=== PATIENT | female | born 1965 | race African-American/Black ===

== ENCOUNTER 2020-04-21 17:58 | Inpatient (IN) | payer MEDICAID, OTHER ==
[~2020-04-21] VITALS: Ht 162.6 cm; Wt 61.7 kg
[2020-04-21] MEDS ORDERED: SODIUM CHLORIDE 0.9% 1,000 ML IV ONE (18:11)
[2020-04-21] MEDS ORDERED: LORAZEPAM 2MG/ML CPJ IV ONE (18:45)
[2020-04-21 18:56] LABS: BASOPHILS % 0.4 % (0.0-2.0); EOSINOPHILS % 0.5 % (0.0-5.0); HEMATOCRIT. 38.1 % (36.0-48.0); HEMOGLOBIN. 13.2 g/dL (12.0-16.0); LYMPHOCYTES % 16.5 % (20.0-50.0); MEAN CORPUSCULAR HEMOGLOBIN 30.8 pg (28.0-32.0); MEAN CORPUSCULAR VOLUME 88.9 fL (81.0-99.0); MEAN PLATELET VOLUME 8.1 fl (7.4-10.4); NEUTROPHILS % 77.6 % (40.0-76.0); PLATELET 265 x1000/uL (130-400); RED BLOOD CELL COUNT 4.28 mill/uL (4.2-5.4); RED CELL DISTRIBUTION WIDTH 12.6 % (11.6-14.6)
[2020-04-21 19:03] LABS: CHLORIDE 111 mEq/L (98-107)
[2020-04-21 19:04] LABS: INR 1.1; PROTHROMBIN TIME 11.3 sec (9.6-11.0)
[2020-04-21 19:07] LABS: ETHANOL BLOOD < 10 mg/dL
[2020-04-21] MEDS ORDERED: ONDANSETRON HCL 4MG/2ML INJ IV ONE (20:00)
[2020-04-21] MEDS ORDERED: ASPIRIN 325MG EC TABLET PO ONE (20:30)
[2020-04-22] MEDS ORDERED: ONDANSETRON HCL 4MG/2ML INJ IV PRN (09:00)
[2020-04-22] MEDS ORDERED: ACETAMINOPHEN 325MG TABLET PO PRN (09:00)
[2020-04-22] MEDS: AMLODIPINE 10MG TABLET PO SCH (14:40)
[2020-04-22] MEDS ORDERED: CLONIDINE 0.1MG TABLET PO PRN (16:00)
[2020-04-22] MEDS ORDERED: LOSARTAN POTASSIUM 50 MG TABLET PO SCH (16:00)
[2020-04-22 19:59] VITALS: BP 138/71
[2020-04-22 20:00] VITALS: BP 138/71
[2020-04-23] VITALS: BP 144/66
[2020-04-23 04:00] VITALS: BP_SYST 119; BP_SYST 131; BP_DIAS 70; BP_DIAS 76; BP_DIAS 88
[2020-04-23 07:43] LABS: CLARITY URINE CLOUDY (CLEAR); COLOR URINE YELLOW (YELLOW); KETONES URINE NEGATIVE (NEGATIVE); LEUKOCYTE ESTERASE URINE TRACE (NEGATIVE); NITRITE URINE NEGATIVE (NEGATIVE); OCCULT BLOOD URINE TRACE (NEGATIVE); PH URINE 5.5 (4.5-8.0); PROTEIN URINE NEGATIVE (NEGATIVE); SPECIFIC GRAVITY URINE 1.014 (1.005-1.030); UROBILINOGEN URINE 0.2 E.U./dL (0.2-1.0)
[2020-04-23 08:00] VITALS: BP 128/65
[2020-04-23] MEDS: AMLODIPINE 10MG TABLET PO SCH (08:31)
[2020-04-23] MEDS ORDERED: ASPIRIN 81MG TABLET PO SCH (09:00)
[2020-04-23] MEDS ORDERED: LIP40 MT (11:59)
[2020-04-23] MEDS ORDERED: LOSA100T32 MT (11:59)
[2020-04-23 12:58] VITALS: BP 130/72
[2020-04-23 14:47] VITALS: BP 138/70
== END 2020-04-23 14:45 | disposition home or self-care (01) | DRG 48 ==
LOC: ER 17:58 → MICUSO 20:28 → EDBEDREQTM 20:34 → EDBEDREQ 20:34 → 5WST 04-22 16:44 → UNDODISIN 04-22 17:50
PROVIDERS: ADMIT Internal Medicine; ATTEND Internal Medicine
DX: G90.8 Other disorders of autonomic nervous system (principal); R07.9 Chest pain, unspecified; I10 Essential (primary) hypertension; E87.8 Other disorders of electrolyte and fluid balance, not elsewhere classified
CPT/HCPCS: 36415; 71045; 80053; 80061; 80320; 81003; 83036; 83605; 83880; 84443; 84484; 85025; 93005; 93306; 96374; 99291; J2060; J2405; J7030; G0480